=== PATIENT | male | born 1980 | race Caucasian/White ===

== ENCOUNTER 2018-07-30 12:00 | Emergency (ER) | payer SELFPAY ==
[~2018-07-30] VITALS: Ht 185.4 cm; Wt 104.0 kg
[2018-07-30 12:46] VITALS: BP 149/80; PULSE 94; RESP 18; Ht 185.4 cm; Wt 104.0 kg
[2018-07-30] MEDS ORDERED: NAPR-985 PO (15:38)
[2018-07-30] MEDS ORDERED: HYDR-4011 PO (15:38)
--- NOTE | 2018-07-30 15:44 | ERD ---
ER Documentation Chief Complaint Chief Complaint HIT BY METAL POLE ONTO LEFT EYE, +TKO, PERRLA & A0X4 NOW HPI 37 yr old male complaining of injury to the left side of face. Patient was hit by a pole when putting together 05/22. He denies any visual changes. He did not have any loss of consciousness and not take any medications for symptoms. Denies other medical problems. NKDA. Surgical history denies. Social history denies ROS All systems reviewed and are negative except as per history of present illness. Medications Home Meds Active Scripts Naproxen* (Naprosyn*) 500 Mg Tablet, 500 MG PO BID PRN for PAIN AND/OR INFLAMMATION, #30 TAB Prov:NEIL BAILEY PA-C 07/30/18 Hydrocodone/Acetaminophen (Darling 5-325 Tablet) 1 Each Tablet, 1 TAB PO Q6H PRN for PAIN, #7 TAB Prov:NEIL BAILEY PA-C 07/30/18 Allergies Allergies: Coded Allergies: No Known Allergy (Unverified , 07/30/18) PMhx/Soc Medical and Surgical Hx: pt denies Medical Hx, pt denies Surgical Hx Hx Alcohol Use: Yes (1-2 beers a day) Smoking Status: Current every day smoker FmHx Family History: No diabetes, No coronary disease, No other Physical Exam Vitals Vital Signs Date Temp Pulse Resp B/P (MAP) Pulse Ox O2 O2 Flow FiO2 Time Delivery Rate 07/30/18 98.1 94 18 149/80 99 12:46 (103) Physical Exam GENERAL: The patient is well-appearing, well-nourished, in no acute distress HEENT: Atraumatic. Conjunctivae are pink. Pupils equal, round, and reactive to light. There is no scleral icterus. Tympanic membranes clear bilaterally. Oropharynx clear. CHEST: Clear to auscultation bilaterally. There are no rales, wheezes or rhonchi. HEART: Regular rate and rhythm. No murmurs, clicks, rubs or gallops. SKIN: Contusion noted to the left side of the face. Procedures/MDM DIAGNOSTIC IMAGING REPORT Patient: KRISTEN [place] : 1980 Age: 37 Sex: M MR #: [id number] DOS: 07/30/18 1447 Ordering MD: MARK BAILEY PA-C Location: [facility] Room/Bed: PROCEDURE: CT Maxillofacial without Contrast CLINICAL INDICATION: Hit by a pole and face TECHNIQUE: Transaxial images were obtained through the maxillofacial region on a multi-slice scanner without the intravenous contrast administration. Sagittal and coronal re-formations were subsequently reconstructed. One or more of the following dose reduction techniques were used: - Automated exposure control. - Adjustment of the mA and/or kV according to patient size. - Use of iterative reconstruction technique. DICOM images are available. Radiation dose: CTDIvol = 29.40 mGy; DLP = 616.52 mGy-cm. COMPARISON: No prior studies are available for comparison. FINDINGS: Osseous structures: Appear intact with no fracture or destructive process evident. The right superior medial incisor and is not descended from the maxilla. There is an impacted left lower wisdom tooth. Paranasal sinuses: There is a 1.4 x 0.7 cm polyp for a mucous retention cyst within the lateral inferior left maxillary sinus. The paranasal sinuses are otherwise well aerated. Mastoid air cells: Appear well pneumatized. Temporomandibular joints: Appear unremarkable. Orbits: The ocular globes, optic nerves, and intraorbital contents appear unremarkable. Soft tissues: Superficial hematoma/contusion is seen within the subcutaneous fat anterior to the left maxilla. IMPRESSION: 1. No facial fracture is identified. 2. There is a polyp for a mucous retention cyst within the left maxillary antrum laterally and inferiorly while the remaining paranasal sinuses and the mastoid air cells are well-aerated. 3. The orbits and orbital contents appear unremarkable. 4. The right medial superior in size are has not distended from the maxilla and there is an impacted left inferior wisdom tooth. 5. Hematoma/contusion is seen within the subcutaneous fat anterior to the left axilla. MDM: 37-year-old male presenting with contusion to left side of face. I have low suspicion for acute fracture dislocation. I have low suspicion for intr acranial hemorrhage or neuro deficit. Patient is discharged with supportive medications and to ice the area affected. Patient is told symptoms change or worsen to return immediately to the ER. All questions answered at discharge Departure Diagnosis: Primary Impression: Facial contusion Condition: Stable Patient Instructions: Facial Contusion, With Wakeup Referrals: [facility] YOU HAVE RECEIVED A MEDICAL SCREENING EXAM AND THE RESULTS INDICATE THAT YOU DO NOT HAVE A CONDITION THAT REQUIRES URGENT TREATMENT IN THE EMERGENCY DEPARTMENT. FURTHER EVALUATION AND TREATMENT OF YOUR CONDITION CAN WAIT UNTIL YOU ARE SEEN IN YOUR DOCTORS OFFICE WITHIN THE NEXT 1-2 DAYS. IT IS YOUR RESPONSIBILITY TO MAKE AN APPOINTMENT FOR FOLOW-UP CARE. IF YOU HAVE A PRIMARY DOCTOR --you should call your primary doctor and schedule an appointment IF YOU DO NOT HAVE A PRIMARY DOCTOR YOU CAN CALL OUR PHYSICIAN REFERRAL HOTLINE AT IF YOU CAN NOT AFFORD TO SEE A PHYSICIAN YOU CAN CHOSE FROM THE FOLLOWING [facility] [address] [facility] [address] [facility] [address] [facility] [address] [facility] [address] [facility] [facility] [address] Additional Instructions: FOLLOW UP WITH YOUR PRIMARY CARE PHYSICIAN TOMORROW.Return to this facility if you are not improving as expected. NEIL BAILEY PA-C Jul 30, 2018 15:44
== END 2018-07-30 15:53 | disposition home or self-care (01) ==
LOC: FTE 12:00
DX: S00.83XA Contusion of other part of head, initial encounter (principal); F17.210 Nicotine dependence, cigarettes, uncomplicated; W22.8XXA Striking against or struck by other objects, initial encounter; Y92.9 Unspecified place or not applicable
CPT/HCPCS: 70486